=== PATIENT | male | born 1975 | race Caucasian/White ===

== ENCOUNTER 2017-01-03 02:50 | Emergency (ER) | payer OTHER ==
[~2017-01-03] VITALS: Ht 175.3 cm; Wt 79.4 kg
--- NOTE | 2017-01-03 02:50 | NUR ---
[facility] TO ER BED 6
[2017-01-03 02:59] VITALS: BP 148/93
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
[2017-01-03 03:55] VITALS: BP 132/85
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
--- NOTE | 2017-01-03 04:04 | NUR ---
Tory pickens in ED - 01/03/17 at 0407 by [facility] [place] [employer] TO ER BED 6
== END 2017-01-03 03:55 ==
LOC: MED 02:50
DX: S39.012A Strain of muscle, fascia and tendon of lower back, initial encounter (principal); F10.10 Alcohol abuse, uncomplicated; V89.2XXA Person injured in unspecified motor-vehicle accident, traffic, initial encounter; Y93.89 Activity, other specified; Y92.89 Other specified places as the place of occurrence of the external cause; Y99.8 Other external cause status

== ENCOUNTER 2019-02-18 07:52 | Emergency (ER) | payer OTHER ==
[~2019-02-18] VITALS: Ht 175.3 cm; Wt 79.4 kg
[2019-02-18 07:59] VITALS: BP 133/88
--- NOTE | 2019-02-18 08:04 | NUR ---
PT AMB TO BED 11
[2019-02-18] MEDS ORDERED: METF500T PO (08:10)
--- NOTE | 2019-02-18 08:10 | NUR ---
43 Y.O M C/O PENILE PAIN & SCANT BLEEDING X TODAY. PT HAD VASECTOMY & FORESKIN SURGERY 01/31/19. PLACED ON BED AND WAITING FOR ER MD EVALUATION .
--- NOTE | 2019-02-18 08:34 | NUR ---
Patient being reevaluated by dr robison at bedside.
[2019-02-18 08:40] VITALS: BP 133/88
--- NOTE | 2019-02-18 08:40 | NUR ---
Patient discharged by Dr Aguayo with v/s stable. Written and verbal after care instructions given and explained. patient alert, oriented and verbalized understanding of instructions. Ambulatory with steady gait. All questions addressed prior to discharge. ID band removed. Patient advised to follow up with PMD. Rx of Keflex given. Patient educated on indication of medication including possible reaction and side effects. Opportunity to ask questions provided and answered.
== END 2019-02-18 08:40 | disposition home or self-care (01) ==
LOC: MED 07:52
DX: N48.89 Other specified disorders of penis (principal); E11.9 Type 2 diabetes mellitus without complications; Z79.84 Long term (current) use of oral hypoglycemic drugs
CPT/HCPCS: 81002; 82948; 99283